=== PATIENT | female | born 1975 | race African-American/Black ===

== ENCOUNTER 2023-12-16 20:43 | Inpatient (IN) | payer MEDICAID ==
[~2023-12-16] VITALS: Ht 154.9 cm; Wt 55.9 kg
[2023-12-16] MEDS: SODIUM CHLORIDE 0.9% 1,000 ML IV ONE ×2 (21:25→22:00)
[2023-12-16 21:33] LABS: CHLORIDE 104 mEq/L (98-107); SODIUM 138 mEq/L (136-145)
[2023-12-16 21:34] LABS: CARBON DIOXIDE 16 mEq/L (21-32)
[2023-12-16 21:35] LABS: CALCIUM 9.6 mg/dL (8.7-10.4)
[2023-12-16 21:36] LABS: BASOPHILS % 0.8 % (0.0-2.0); DIFFERENTIAL COMMENT 0; EOSINOPHILS % 0.9 % (0.0-5.0); HEMATOCRIT. 25.8 % (36.0-48.0); HEMOGLOBIN. 7.8 g/dL (12.0-16.0); LYMPHOCYTES % 24.4 % (20.0-50.0); MEAN CORPUSCULAR HEMOGLOBIN 21.3 pg (28.0-32.0); MEAN CORPUSCULAR HGB CONC 30.2 g/dL (31.0-37.0); MEAN CORPUSCULAR VOLUME 70.4 fL (81.0-99.0); MEAN PLATELET VOLUME 7.1 fl (7.4-10.4); MONOCYTES % 8.6 % (2.0-8.0); NEUTROPHILS % 65.3 % (40.0-76.0); PLATELET 164 x1000/uL (130-400); RED BLOOD CELL COUNT 3.66 mill/uL (4.2-5.4); WHITE BLOOD COUNT 5.5 x1000/uL (4.5-11.0)
[2023-12-16 21:39] LABS: CREATININE 0.5 mg/dL (0.6-1.0); GLUCOSE 144 mg/dL (70-105); INR 0.9
[2023-12-16 21:40] LABS: ETHANOL BLOOD 100 mg/dL (<10); HCG SCREEN POSITIVE; TROPONIN I HIGH SENSITIVITY 8 ng/L (3.0-34); UREA NITROGEN BLOOD 7 mg/dL (9-23)
[2023-12-16 21:53] LABS: POTASSIUM 2.7 mEq/L (3.5-5.1)
[2023-12-16 22:14] LABS: CLARITY URINE CLEAR (CLEAR); COLOR URINE YELLOW (YELLOW); GLUCOSE URINE TRACE (NEGATIVE); KETONES URINE 3+ (NEGATIVE); LEUKOCYTE ESTERASE URINE NEGATIVE (NEGATIVE); NITRITE URINE NEGATIVE (NEGATIVE); OCCULT BLOOD URINE NEGATIVE (NEGATIVE); PROTEIN URINE NEGATIVE (NEGATIVE); SPECIFIC GRAVITY URINE 1.013 (1.005-1.030)
[2023-12-16] MEDS: KCL 20MEQ/100ML PREMIX 100 ML IV SCH (22:14)
[2023-12-16] MEDS: MAGNESIUM 2 G PREMIX 50 ML IV ONE (22:14)
[2023-12-16] MEDS: POTASSIUM CHLORIDE 20MEQ/PACKET PO ONE (22:14)
[2023-12-16 22:22] LABS: B-HCG QUANTITATIVE 710 mIU/mL (<3)
[2023-12-16 22:22] LABS: *AMPHETAMINES SCREEN URINE NEGATIVE (NEGATIVE); *BARBITURATES SCREEN URINE NEGATIVE (NEGATIVE); *BENZODIAZEPINES SCREEN URINE NEGATIVE (NEGATIVE)
[2023-12-16 22:23] LABS: ALANINE AMINOTRANSFERASE 35 IU/L (10-49); ALBUMIN 4.3 g/dL (3.2-4.8); ASPARTATE AMINOTRANSFERASE 133 IU/L (<34); BILIRUBIN DIRECT 0.1 mg/dL (<=3.0); BILIRUBIN TOTAL 0.5 mg/dL (0.1-1.0); PROTEIN TOTAL 7.1 g/dL (6.0-8.3)
[2023-12-16 22:23] LABS: *COCAINE SCREEN URINE NEGATIVE (NEGATIVE); CANNABINOID URINE SCREEN NEGATIVE (NEGATIVE); ECSTASY MDMA SCREEN URINE NEGATIVE (NEGATIVE); METHADONE URINE SCREEN NEGATIVE (NEGATIVE); OPIATES URINE SCREEN NEGATIVE (NEGATIVE); PHENCYCLIDINE URINE SCREEN NEGATIVE (NEGATIVE)
[2023-12-16 22:49] LABS: BACTERIA URINE 1+; RBC URINE 0-2 /hpf (0-2); SQUAMOUS EPITHELIAL CELL URINE 1+ /lpf (RARE/1+); WBC URINE 0-2 /hpf (0-2)
[2023-12-17 00:19] LABS: TROPONIN I HIGH SENSITIVITY 28 ng/L (3.0-34)
[2023-12-17] MEDS ORDERED: IPRATROPIUM/ALBUTEROL 0.5-3(2.5)MG/3ML NEB HHN PRN (00:45)
[2023-12-17] MEDS ORDERED: ACETAMINOPHEN 325MG TABLET PO PRN ×2 (00:45)
[2023-12-17] MEDS ORDERED: ONDANSETRON HCL 4MG/2ML INJ IV PRN (00:45)
[2023-12-17] MEDS ORDERED: DEXTROSE 50% WATER 50ML SYRINGE IV PRN (00:45)
[2023-12-17] MEDS ORDERED: GUAIFENESIN 200MG/10ML SUGAR FREE UDC PO PRN (00:45)
[2023-12-17] MEDS ORDERED: CLONIDINE 0.1MG TABLET PO PRN (00:45)
[2023-12-17] MEDS ORDERED: DOCUSATE SODIUM 100MG CAPSULE PO PRN (00:45)
[2023-12-17] MEDS ORDERED: MAGNESIUM/ALUMINUM HYDROXIDE/SIMETHICONE 30ML UDC PO PRN (00:45)
[2023-12-17 06:47] LABS: CHLORIDE 108 mEq/L (98-107); POTASSIUM 3.9 mEq/L (3.5-5.1); SODIUM 137 mEq/L (136-145)
[2023-12-17 06:48] LABS: CALCIUM 8.1 mg/dL (8.7-10.4); CARBON DIOXIDE 18 mEq/L (21-32)
[2023-12-17 06:53] LABS: CREATININE 0.5 mg/dL (0.6-1.0); GLUCOSE 138 mg/dL (70-105); IRON 31 ug/dL (50-170); TRIGLYCERIDE 96 mg/dL (0-150); UREA NITROGEN BLOOD 5 mg/dL (9-23)
[2023-12-17 06:54] LABS: BASOPHILS % 0.7 % (0.0-2.0); DIFFERENTIAL COMMENT 0; EOSINOPHILS % 0.6 % (0.0-5.0); LDL CHOLESTEROL 63 mg/dL (5-100); LYMPHOCYTES % 24.4 % (20.0-50.0); MEAN CORPUSCULAR HEMOGLOBIN 20.5 pg (28.0-32.0); MEAN CORPUSCULAR VOLUME 70.9 fL (81.0-99.0); MONOCYTES % 11.6 % (2.0-8.0); NEUTROPHILS % 62.7 % (40.0-76.0); PLATELET 140 x1000/uL (130-400); RED BLOOD CELL COUNT 3.25 mill/uL (4.2-5.4); RED CELL DISTRIBUTION WIDTH 19.4 % (11.6-14.6); WHITE BLOOD COUNT 4.1 x1000/uL (4.5-11.0)
[2023-12-17 06:55] LABS: CHOLESTEROL 177 mg/dL (<200); HDL CHOLESTEROL 94 mg/dL (>65); PHOSPHORUS 2.7 mg/dL (2.5-4.9); TOTAL IRON BINDING CAPACITY 320 ug/dl (250-425)
[2023-12-17 06:58] LABS: T4 FREE 0.87 ng/dL (0.89-1.76); THYROID STIMULATING HORMONE 4.04 uIU/mL (0.55-4.78)
[2023-12-17 07:05] LABS: HEMOGLOBIN. 6.7 g/dL (12.0-16.0)
[2023-12-17] MEDS: INSULIN LISPRO 100 UNITS/ML SUBCUT SCH (08:20)
[2023-12-17] MEDS: BLOOD SUGAR DIAGNOSTIC STRIP TEST SCH (09:31)
[2023-12-17] MEDS: PANTOPRAZOLE SODIUM 40 MG/VIAL IV SCH (09:50)
[2023-12-17 20:00] VITALS: BP 130/76; RESP 18; TEMP 36.55848; O2SAT 99
[2023-12-17 22:00] VITALS: BP 138/81; PULSE 87; RESP 16; TEMP 36.61404; O2SAT 100
[2023-12-17 22:20] VITALS: BP 142/93; PULSE 87; RESP 20; TEMP 36.22512; O2SAT 99
[2023-12-17 23:00] VITALS: BP 142/93; PULSE 87; RESP 20; TEMP 36.2512
[2023-12-18 04:00] VITALS: BP 137/83; PULSE 72; RESP 18; TEMP 36.55848; O2SAT 100
[2023-12-18 08:00] VITALS: BP 134/99; PULSE 82; RESP 16; TEMP 36.3918; TEMP 36.39180; O2SAT 99
[2023-12-18 09:11] LABS: CHLORIDE 105 mEq/L (98-107); HEMATOCRIT 30.7 % (36.0-48.0); MEAN CORPUSCULAR HEMOGLOBIN 21.7 pg (28.0-32.0); MEAN CORPUSCULAR HGB CONC 29.4 g/dL (31.0-37.0); MEAN CORPUSCULAR VOLUME 73.7 fL (81.0-99.0); PLATELET 127 x1000/uL (130-400); POTASSIUM 4.1 mEq/L (3.5-5.1); RED BLOOD CELL COUNT 4.16 mill/uL (4.2-5.4); RED CELL DISTRIBUTION WIDTH 19.4 % (11.6-14.6); SODIUM 137 mEq/L (136-145); WHITE BLOOD COUNT 3.7 x1000/uL (4.5-11.0)
[2023-12-18 09:12] LABS: CALCIUM 9.1 mg/dL (8.7-10.4); CARBON DIOXIDE 24 mEq/L (21-32)
[2023-12-18 09:17] LABS: CREATININE 0.5 mg/dL (0.6-1.0); GLUCOSE 159 mg/dL (70-105)
[2023-12-18 09:43] LABS: UREA NITROGEN BLOOD < 5 mg/dL (9-23)
[2023-12-18 11:36] VITALS: BP 134/94; PULSE 82; TEMP 97.5; O2SAT 99
== END 2023-12-18 12:20 | disposition home or self-care (01) | DRG 564 ==
LOC: ER 20:43 → 5WST 12-17 00:01 → 7EST 12-17 22:42
PROVIDERS: ADMIT Hospitalist; ATTEND Hospitalist
PROC: 30233N1 Transfusion of Nonautologous Red Blood Cells into Peripheral Vein, Percutaneous Approach (ICD-10-PCS; principal; 2023-12-17)
DX: O03.9 Complete or unspecified spontaneous abortion without complication (principal); D62 Acute posthemorrhagic anemia; I47.10 Supraventricular tachycardia, unspecified; O99.43 Diseases of the circulatory system complicating the puerperium; O24.33 Unspecified pre-existing diabetes mellitus in the puerperium; I10 Essential (primary) hypertension; D50.9 Iron deficiency anemia, unspecified; E87.6 Hypokalemia; E11.65 Type 2 diabetes mellitus with hyperglycemia; Z87.891 Personal history of nicotine dependence
CPT/HCPCS: 36415; 71045; 76801; 80048; 80061; 80076; 80305; 80320; 81003; 82728; 82962; 83036; 83540; 83550; 83735; 83880; 84100; 84439; 84443; 84484; 84702; 84703; 85025; 85027; 86304; 86850; 86900; 86920; 93005; 99285; J1815; J2470; J3475; J3480; J7030; P9016; G0480